=== PATIENT | female | born 1940 | race Caucasian/White ===

== ENCOUNTER 2022-02-01 13:45 | Emergency (ER) | payer MEDICARE, OTHER ==
[~2022-02-01] VITALS: Ht 162.6 cm; Wt 73.1 kg
[2022-02-01] MEDS ORDERED: IV NORMAL SALINE 500ML 500 ML IV ONE (14:30)
[2022-02-01] MEDS: ONDANSETRON PF 4 MG/2 ML VIAL. IVP ONE ×2 (14:30→15:45)
--- NOTE | 2022-02-01 14:44 | PHYS DOC ---
General Adult EDM: Chief Complaint: ABDOMINAL PAIN HPI: HPI: Patient is a 81-year-old female coming in today for about 4-5 episodes of emesis since yesterday. Has had some diarrhea. She has right lower quadrant abdominal pain that radiates to the back states she had one episode of green emesis. Denies any fevers chills, body aches, cough or shortness of breath. Patient states she last ate a hamburger and fries yesterday, has not had anything to eat today. Review of Systems: Review of Systems: All other systems within normal limits except for as noted in the HPI Current Medications: Current Meds: Current Medications Medications (Trade) Dose Ordered Sig/Willis Start Time Stop Time Status Last Admin Dose Admin Ondansetron HCl (Zofran) 4 mg 1X ONCE 02/01/22 14:30 02/01/22 14:31 DC Sodium Chloride 500 ml @ 0 mls/hr 1X ONCE 02/01/22 14:30 02/01/22 14:31 DC Allergies: Allergies: Allergies Coded Allergies Type Severity Reaction Last Updated Verified No Known Drug Allergies 02/01/22 No Physical Exam: PE: Constitutional: Well developed, well nourished, no acute distress, non-toxic appearance. [] HENT: Normocephalic, atraumatic, bilateral external ears normal, nose normal. [] Eyes: PERRLA, conjunctiva normal, no discharge. [] Neck: No rigidity, supple, no stridor. [] Cardiovascular: Regular rate and rhythm, brisk cap refill [] Lungs & Thorax: Non labored symmetric respirations, no tachypnea or respiratory distress [] Abdomen: Soft, nondistended, right lower quadrant pain, negative Amador sign, positive Rovsing's. Skin: Warm, dry, no erythema, no rash. [] Back: Unremarkable Extremities: No deformities, range of motion grossly intact, no lower extremity edema [] Neurologic: Alert and oriented X 3, no focal deficits noted. [] Psychologic: Affect normal, judgement normal, mood normal. [] EKG: EKG: Sinus bradycardia, heart rate 40 bpm, normal axis, no isolation depression, no ectopy. No STEMI [] Radiology/Procedures: Radiology/Procedures: [address] [address] IMAGING REPORT Signed PATIENT: AYESHA ALLISON ACCOUNT: [id number] : 1940 LOCATION: ER AGE: 81 SEX: F EXAM STATUS: REG ER ORD. PHYSICIAN: JENNIFER PANIAGUA MD REASON: hypoxic, RLQ pain emesis PROCEDURE: CT CHEST ABD PELVIS W/CONTRAST CT STUDY OF THE CHEST WITH CONTRAST CT STUDY OF THE ABDOMEN AND PELVIS WITH CONTRAST Clinical indications: Hypoxia. Right lower quadrant pain. Emesis. TECHNIQUE: After IV infusion of 75 cc of Omnipaque 300, helical CT scanning of the chest and abdomen and pelvis was performed. GI contrast was not administered. This may decrease the sensitivity to detect GI tract pathology. PQRS COMPLIANCE STATEMENT One or more of the following individualized dose reduction techniques were utilized for this study: 1. Automated exposure control 2. Adjustment of the mA and/or kV according to patient size 3. Use of iterative reconstruction technique COMPARISON: None available. CHEST CT: No pulmonary emboli are evident. No focal aneurysmal dilatation or dissection of thoracic aorta is seen. Heart size is normal and no pericardial effusion is seen. No enlarged thoracic lymphadenopathy is apparent. Basilar atelectasis is seen. This is more prominent on the right side due to severe elevation of the right hemidiaphragm extending all way to the level of the right hilum. No lung consolidation with air bronchograms is seen. No lung mass is apparent. No pleural effusion or pneumothorax is seen. The proximal bronchial tree is patent. No lytic process is seen. IMPRESSION: Severe elevation of the right hemidiaphragm extending to the level of the right hilum with associated right lung base atelectasis. Minimal left lung base atelectasis is seen. No lung consolidation is evident. ABDOMEN AND PELVIS CT: Diffuse fatty infiltration of liver is seen. Spleen is not enlarged. No pancreatic mass is seen. The gallbladder is distended measuring over 10 cm in length. Multiple small gallstones are seen within the gallbladder. No dilatation of the extrahepatic biliary tree is seen. The main pancreatic duct is visualized but is not abnormally dilated. No adrenal mass is evident. No hydronephrosis or hydroureter is seen. No urinary tract stone is evident. Urinary bladder is not abnormally distended. Abnormal thickening of the endometrial canal is seen measuring up to 17 mm. No dominant ovarian cyst or mass is seen. Sigmoid diverticulosis is seen without diverticulitis. The appendix is normal. The terminal ileum is unremarkable. No obstructive bowel pattern is seen. Wall thickening of the antrum of the stomach is seen. No free air or free fluid or mesenteric edema is seen. No focal aneurysmal dilatation of the abdominal aorta is seen. No enlarged abdominal or pelvic lymphadenopathy is seen. No lytic process is seen. IMPRESSION: Distended gallbladder with gallstones. Cholecystitis is possible. Hepatobiliary scan with ejection fraction may be helpful for further evaluation. The biliary tree is not abnormally dilated. Abnormal thickening of the endometrial canal measuring up to 17 mm. Recommend transabdominal and transvaginal pelvic sonography. Wall thickening of the antrum of the stomach which may be due to incomplete distention but could be seen with gastritis or peptic ulcer disease. Electronically signed by: Anand Haddad MD (02/01/2022 5:16 PM) [id number] DICTATED AND SIGNED BY: ANAND HADDAD MD DATE: 02/01/221654 CC: JENNIFER PANIAGUA MD; LONG DORANTES MD ~ [] Heart Score: C/O Chest Pain: No Risk Factors: Risk Factors: DM, Current or recent (<one month) smoker, HTN, HLP, family history of CAD, obesity. Risk Scores: Score 0 - 3: 2.5% MACE over next 6 weeks - Discharge Home Score 4 - 6: 20.3% MACE over next 6 weeks - Admit for Clinical Observation Score 7 - 10: 72.7% MACE over next 6 weeks - Early Invasive Strategies Course & Med Decision Making: Course & Med Decision Making Pertinent Labs and Imaging studies reviewed. (See chart for details) Discussed with Dr. Martinez, will transfer to [place] for cholecystectomy tomorrow. Patient given antibiotics prior to transfer. [] Dragon Disclaimer: Dragon Disclaimer: This electronic medical record was generated, in whole or in part, using a voice recognition dictation system. Departure Departure: Impression: Primary Impression: Biliary colic Additional Impressions: Nausea & vomiting Dehydration Disposition: 02 [facility]ORT [facility]M [facility] Condition: STABLE Referrals: LONG DORANTES MD (PCP) JENNIFER PANIAGUA MD Feb 01, 2022 14:44
[2022-02-01 14:59] LABS: CLARITY,URINE CLEAR; COLOR,URINE YELLOW; GLUCOSE,URINE NEG (NEG)
[2022-02-01 15:00] LABS: BACTERIA,URINE 0 /HPF (0-FEW); NITRITE,URINE NEG (NEG); SQUAMOUS EPITHELIAL CELL,UR MOD /LPF; UROBILINOGEN,URINE 0.2 mg/dL (0.2 mg/dL); WBC,URINE 0 /HPF (0-4)
[2022-02-01 15:14] LABS: BASO % 0 % (0-3); EOS % 0 % (0-3); HEMATOCRIT 40.9 % (36.0-47.0); HEMOGLOBIN 13.3 g/dL (12.0-15.5); LYMPH # 0.9 x10^3/uL (1.0-4.8); LYMPH % 9 % (24-48); MEAN CORPUSCULAR HEMOGLOBIN 31 pg (25-35); MEAN CORPUSCULAR HGB CONC 33 g/dL (31-37); MEAN CORPUSCULAR VOLUME 94 fL (79-100); MONO # 0.6 x10^3/uL (0.0-1.1); MONO % 6 % (0-9); NEUT % 86 % (31-73); PLATELET COUNT 149 x10^3/uL (140-400); RED BLOOD COUNT 4.37 x10^6/uL (3.50-5.40); WHITE BLOOD COUNT 10.5 x10^3/uL (4.0-11.0)
[2022-02-01 15:27] LABS: CALCIUM 9.1 mg/dL (8.5-10.1); CREATININE 1.1 mg/dL (0.6-1.0); GFR 47.7; POTASSIUM 4.4 mmol/L (3.5-5.1)
[2022-02-01 15:40] LABS: ALBUMIN 3.6 g/dL (3.4-5.0); ALBUMIN/GLOBULIN RATIO 1.1 (1.0-1.7); MAGNESIUM 1.9 mg/dL (1.8-2.4); PHOSPHORUS 3.4 mg/dL (2.6-4.7); TOTAL BILIRUBIN 0.6 mg/dL (0.2-1.0); TOTAL PROTEIN 6.9 g/dL (6.4-8.2)
[2022-02-01] MEDS ORDERED: IOHEXOL 300 MG/ML 75 ML VIAL. IV ONE (15:45)
--- NOTE | 2022-02-01 17:04 | EKG ---
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
--- NOTE | 2022-02-01 17:18 | RAD ---
CT STUDY OF THE CHEST WITH CONTRAST CT STUDY OF THE ABDOMEN AND PELVIS WITH CONTRAST Clinical indications: Hypoxia. Right lower quadrant pain. Emesis. TECHNIQUE: After IV infusion of 75 cc of Omnipaque 300, helical CT scanning of the chest and abdomen and pelvis was performed. GI contrast was not administered. This may decrease the sensitivity to dete ct GI tract pathology. PQRS COMPLIANCE STATEMENT One or more of the following individualized dose reduction techniques were utilized for this study: 1. Automated exposure control 2. Adjustment of the mA and/or kV according to patient size 3. Use of iterative reconstruction technique COMPARISON: None available. CHEST CT: No pulmonary emboli are evident. No focal aneurysmal dilatation or dissection of thoracic a tierney is seen. Heart size is normal and no pericardial effusion is seen. No enlarged thoracic lymphade nopathy is apparent. Basilar atelectasis is seen. This is more prominent on the right side due to sev ere elevation of the right hemidiaphragm extending all way to the level of the right hilum. No lung c onsolidation with air bronchograms is seen. No lung mass is apparent. No pleural effusion or pneumoth orax is seen. The proximal bronchial tree is patent. No lytic process is seen. IMPRESSION: Severe elevation of the right hemidiaphragm extending to the level of the right hilum wit h associated right lung base atelectasis. Minimal left lung base atelectasis is seen. No lung consoli dation is evident. ABDOMEN AND PELVIS CT: Diffuse fatty infiltration of liver is seen. Spleen is not enlarged. No pancre atic mass is seen. The gallbladder is distended measuring over 10 cm in length. Multiple small gallst ones are seen within the gallbladder. No dilatation of the extrahepatic biliary tree is seen. The libby n pancreatic duct is visualized but is not abnormally dilated. No adrenal mass is evident. No hydrone phrosis or hydroureter is seen. No urinary tract stone is evident. Urinary bladder is not abnormally distended. Abnormal thickening of the endometrial canal is seen measuring up to 17 mm. No dominant ov kandy cyst or mass is seen. Sigmoid diverticulosis is seen without diverticulitis. The appendix is no rmal. The terminal ileum is unremarkable. No obstructive bowel pattern is seen. Wall thickening of th e antrum of the stomach is seen. No free air or free fluid or mesenteric edema is seen. No focal aneu rysmal dilatation of the abdominal aorta is seen. No enlarged abdominal or pelvic lymphadenopathy is seen. No lytic process is seen. IMPRESSION: Distended gallbladder with gallstones. Cholecystitis is possible. Hepatobiliary scan with ejection fraction may be helpful for further evaluation. The biliary tree is not abnormally dilated. Abnormal thickening of the endometrial canal measuring up to 17 mm. Recommend transabdominal and starr svaginal pelvic sonography. Wall thickening of the antrum of the stomach which may be due to incomplete distention but could be s een with gastritis or peptic ulcer disease. Electronically signed by: Jaime Haddad MD (02/01/2022 5:16 PM) [id number]
[2022-02-01] MEDS ORDERED: IV RINGERS SOLUTION,LACTATED 1,000 ML IV ONE (17:45)
[2022-02-01] MEDS ORDERED: PIPERACILLIN/TAZOBACTAM 3.375 GM in IV NORMAL SALINE 50ML 50 ML IV ONE (18:00)
[2022-02-01] MEDS ORDERED: IV NORMAL SALINE 50ML 50 ML ONE (18:31)
[2022-02-01] MEDS ORDERED: PIPERACILLIN/TAZOBACTAM 3.375 GM VIAL IV ONE (18:32)
[2022-02-01] MEDS ORDERED: ATROPINE 0.5 MG/5 ML DISP.SYRIN. ONE (22:10)
--- NOTE | 2022-02-01 22:30 | EKG ---
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
[2022-02-01 22:52] VITALS: BP 144/57
[2022-02-01] MEDS ORDERED: KETOROLAC 15 MG/ML VIAL. IVP ONE (23:00)
== END 2022-02-01 23:15 | disposition short-term general hospital (02) ==
LOC: ER 13:45
DX: K80.50 Calculus of bile duct without cholangitis or cholecystitis without obstruction (principal); E86.0 Dehydration; Z20.822 Contact with and (suspected) exposure to COVID-19
CPT/HCPCS: 36415; 71260; 74177; 80053; 81001; 83605; 83690; 83735; 83880; 84100; 84484; 85025; 87426; 93005; 96361; 96365; 96375; 96376; 99285; C9803; J1885; J2405; J2543; J3010; J7040; J7120; Q9967; U0003